=== PATIENT | female | born 1970 | race African-American/Black ===

== ENCOUNTER 2019-05-02 21:26 | Emergency (ER) | payer MEDICAID ==
[~2019-05-02] VITALS: Ht 167.6 cm; Wt 136.1 kg
[2019-05-03 11:19] VITALS: BP 121/57
== END 2019-05-03 11:27 | disposition home or self-care (01) ==
LOC: ER 21:26 → EDBD 21:26 → ER 05-03 11:27
DX: F41.9 Anxiety disorder, unspecified (principal); Z76.0 Encounter for issue of repeat prescription